=== PATIENT | female | born 1985 | race Caucasian/White ===

== ENCOUNTER 2018-10-18 23:55 | Emergency (ER) | payer SELFPAY ==
[2018-10-19 00:07] VITALS: BP 111/81; PULSE 102; RESP 20; TEMP 98.4; O2SAT 100
[2018-10-19] MEDS ORDERED: Oxycodone/Acetaminophen 5/325 mg Tab PO STA (00:28)
--- NOTE | 2018-10-19 00:32 | C.PDOC ---
History Of Present Illness 33 year old female presents to the ED c/o left hip swelling for the past 6 days. Patient reports she initially had a small pimple with redness around it. Patient states now area with worsening pain. Patient denies fever, chills, rash, injury, fall, trauma. Time Seen by Provider: 10/19/18 00:16 Chief Complaint (Nursing): Abnormal Skin Integrity History Per: Patient History/Exam Limitations: no limitations Onset/Duration Of Symptoms: Days (6) Current Symptoms Are (Timing): Still Present Location Of Injury: Left: Hip Quality Of Symptoms: Painful, Swollen Recent travel outside of the [place]: No Additional History Per: Patient Past Medical History Reviewed: Historical Data, Nursing Documentation, Vital Signs Vital Signs: Last Vital Signs Temp 98.4 F 10/19/18 00:01 Pulse 102 H 10/19/18 00:01 Resp 20 10/19/18 00:01 BP 111/81 10/19/18 00:01 Pulse Ox 100 10/19/18 00:01 - Medical History PMH: No Chronic Diseases Surgical History: No Surg Hx Family History: States: Unknown Family Hx - Social History Hx Alcohol Use: No Hx Substance Use: No - Immunization History Hx Tetanus Toxoid Vaccination: No Hx Influenza Vaccination: No Hx Pneumococcal Vaccination: No Review Of Systems Constitutional: Negative for: Fever, Chills Gastrointestinal: Negative for: Vomiting, Diarrhea Musculoskeletal: Positive for: Other (Hip pain). Negative for: Leg Pain Skin: Positive for: Other (abscess). Negative for: Lesions Neurological: Negative for: Weakness, Numbness Physical Exam - Physical Exam Appears: Non-toxic, No Acute Distress Skin: Normal Color, Warm, Dry Head: Atraumatic, Normacephalic Eye(s): bilateral: Normal Inspection Extremity: Normal ROM, Capillary Refill (< 2 seconds), Other (left hip 10 cm area of skin induration, surronding erythema. Not fluctuant, no drainage) Pulses: Left Dorsalis Pedis: Normal, Right Dorsalis Pedis: Normal Neurological/Psych: Oriented x3, Normal Speech, Normal Cognition Gait: Steady ED Course And Treatment O2 Sat by Pulse Oximetry: 100 (ON RA) Pulse Ox Interpretation: Normal Progress Note: Plan: - Clindamycin 300 mg PO. - Percocet 1 tab PO. There was no indication of I&D at this time, patient was advised to put warm compress on abscess and return in 2-3 days if area is draining or if pain worsens. Disposition - Disposition Disposition: HOME/ ROUTINE Disposition Time: 00:29 Condition: STABLE Additional Instructions: Follow up with your PMD within 1-2 days. Return to ED immediately if feel worse. Warm compresses. Prescriptions: Clindamycin [Cleocin] 300 mg PO Q6 #28 cap Ibuprofen [Motrin Tab] 600 mg PO Q8 #30 tab traMADol [Ultram] 50 mg PO Q6 #10 tab Instructions: Cellulitis (Skin Infection), Adult (DC) Forms: [employer] ([place]) - Clinical Impression Clinical Impression: Cellulitis - PA / TELECOM ENGINEER / Resident Statement MD/DO has reviewed & agrees with the documentation as recorded. - Scribe Statement The provider has reviewed the documentation as recorded by the Scribe Beto Rios All medical record entries made by the Scribe were at my direction and personally dictated by me. I have reviewed the chart and agree that the record accurately reflects my personal performance of the history, physical exam, medical decision making, and the department course for this patient. I have also personally directed, reviewed, and agree with the discharge instructions and disposition.
[2018-10-19] MEDS ORDERED: Oxycodone/Acetaminophen 5/325 mg Tab ONE (00:34)
== END 2018-10-19 00:34 | disposition home or self-care (01) ==
LOC: C.ER 23:55
DX: L03.319 Cellulitis of trunk, unspecified (principal)